=== PATIENT | female | born 1950 | race Caucasian/White ===

== ENCOUNTER → 2019-03-22 15:35 | Outpatient (BNVA) | payer MEDICARE, SELFPAY | PROVIDERS: Family Provider Family Medicine; PCP Family Medicine; Visit Provider Otolaryngology | DX: J34.2 Deviated nasal septum (principal); J34.3 Hypertrophy of nasal turbinates; J34.89 Other specified disorders of nose and nasal sinuses; R09.82 Postnasal drip | CPT/HCPCS: 99213; 99214 ==

== ENCOUNTER → 2019-04-27 13:26 | Outpatient (BNVA) | payer MEDICARE, SELFPAY | PROVIDERS: Family Provider Family Medicine; PCP Family Medicine; Visit Provider Nurse Practitioner Family | DX: E78.5 Hyperlipidemia, unspecified (principal); I10 Essential (primary) hypertension; E55.9 Vitamin D deficiency, unspecified; M25.562 Pain in left knee; G89.29 Other chronic pain; E78.2 Mixed hyperlipidemia | CPT/HCPCS: 73562; 80053; 80061; 82306; 85025 ==

== ENCOUNTER 2019-05-09 11:56 | Outpatient (CLI) | payer MEDICARE, SELFPAY ==
--- NOTE | 2019-05-09 12:43 | MR_ITS ---
WS: [id number] MRI LEFT KNEE HISTORY: left knee pain COMPARISON: LEFT knee radiograph 04/27/2019 Anterior cruciate ligament: Intact. Posterior cruciate ligament: Intact. Medial collateral ligament: Abnormal medial collateral ligament. MCL is being displaced from the knee by osteophytes and additional soft tissue. Abnormal signal involving a large portion of the MCL. The re is increased T2 signal at the level of the joint involving full-thickness MCL. Posterior lateral corner structures: Intact. Medial menisci: Abnormal anterior and posterior horns. There is a complex tear in the posterior horn and very little normal meniscal signal. Meniscus is extruded from the joint space. There is soft tiss ue in the circular manner which extends inferior to the medial tibial plateau which could be an extru ded meniscal fragment or portion of the torn MCL. Lateral meniscus: Intact. Normal signal, size and shape. Extensor mechanism: Distal quadriceps tendon and patellar tendons are intact. Fluid and soft tissue: Small joint effusion. There is increase fluid surrounding the MCL and soft tis robert edema. There is a very tiny amount of fluid in the expected location of Hilton's cyst. Osseous and articular structures: Patellofemoral compartment: Moderate narrowing patellofemoral joint. Thinning and fissuring of the ca rtilage. Loss of cartilage over the patellar eminence. Medial compartment: Severe internal derangement of the medial compartment. There is bone upon bone wi th loss of cartilage, edema and extruded meniscus and osteophytes. Largest amount of marrow edema is in the medial tibial plateau. Additional subchondral cystic changes in the medial femoral condyle. Lateral compartment: Mild narrowing of the lateral compartment with fissuring of the cartilage. No fu ll-thickness defect or marrow signal abnormality. MR/MR knee LT wo con* [id number] IMPRESSION: 1. Severe internal derangement medial compartment. Loss of cartilage with trista ow edema, extruded meniscus, complex tear posterior horn medial meniscus, osteo phytes and partially torn MCL. Suspect extruded meniscus has extended inferior to the joint line. 2. Focal cartilage loss at the patellar eminence. 3. Mild internal derangement lateral compartment.
== END 2019-05-09 11:57 | disposition home or self-care (01) ==
PROVIDERS: Family Provider Family Medicine; PCP Family Medicine; Visit Provider Nurse Practitioner Family
DX: M23.92 Unspecified internal derangement of left knee (principal); M25.562 Pain in left knee; G89.29 Other chronic pain
CPT/HCPCS: 73721

== ENCOUNTER → 2020-01-09 10:35 | Outpatient (BNVA) | payer MEDICARE, SELFPAY | PROVIDERS: Family Provider Family Medicine; PCP Family Medicine; Visit Provider Nurse Practitioner Family | DX: I10 Essential (primary) hypertension (principal); E78.2 Mixed hyperlipidemia; Z79.899 Other long term (current) drug therapy | CPT/HCPCS: 80053; 80061; 84443; 85025 ==

== ENCOUNTER → 2020-07-09 09:18 | Outpatient (BNVA) | payer MEDICARE, SELFPAY | PROVIDERS: Family Provider Family Medicine; PCP Family Medicine; Visit Provider Nurse Practitioner Family | DX: I10 Essential (primary) hypertension (principal); M25.50 Pain in unspecified joint; E55.9 Vitamin D deficiency, unspecified; E78.2 Mixed hyperlipidemia; L21.0 Seborrhea capitis | CPT/HCPCS: 80053; 80061; 82306; 82607; 83735; 84443; 84550; 84560; 85025; 85651; 86038; 86140; 86431 ==

== ENCOUNTER → 2021-01-07 11:35 | Outpatient (BNVA) | payer MEDICARE, SELFPAY | PROVIDERS: Family Provider Family Medicine; PCP Family Medicine; Visit Provider Nurse Practitioner Family | DX: I10 Essential (primary) hypertension (principal); E55.9 Vitamin D deficiency, unspecified | CPT/HCPCS: 80053; 80061; 82306; 82607; 83735; 84443; 85025 ==

== ENCOUNTER → 2021-01-10 09:02 | Outpatient (BNVA) | payer MEDICARE, SELFPAY | PROVIDERS: Family Provider Family Medicine; PCP Family Medicine; Visit Provider Nurse Practitioner Family | DX: I10 Essential (primary) hypertension (principal) | CPT/HCPCS: 85025 ==

== ENCOUNTER → 2021-07-01 08:44 | Outpatient (BNVA) | payer MEDICARE, SELFPAY | PROVIDERS: Family Provider Family Medicine; PCP Family Medicine; Visit Provider Nurse Practitioner Family | DX: I10 Essential (primary) hypertension (principal); E53.8 Deficiency of other specified B group vitamins; E55.9 Vitamin D deficiency, unspecified | CPT/HCPCS: 80053; 80061; 82306; 82607; 83735; 84443; 85025 ==

== ENCOUNTER → 2022-01-13 09:30 | Outpatient (BNVA) | payer MEDICARE, SELFPAY | PROVIDERS: Family Provider Family Medicine; PCP Family Medicine; Visit Provider Nurse Practitioner Family | DX: I10 Essential (primary) hypertension (principal); M54.50 Low back pain, unspecified; G89.29 Other chronic pain; E78.2 Mixed hyperlipidemia; E55.9 Vitamin D deficiency, unspecified; E53.8 Deficiency of other specified B group vitamins; M25.511 Pain in right shoulder | CPT/HCPCS: 73030; 80053; 80061; 82306; 82607; 83735; 84443; 85025 ==

== ENCOUNTER → 2022-07-07 11:15 | Outpatient (BNVA) | payer MEDICARE, SELFPAY | PROVIDERS: Family Provider Family Medicine; PCP Family Medicine; Visit Provider Nurse Practitioner Family | DX: I10 Essential (primary) hypertension (principal); E78.2 Mixed hyperlipidemia; E55.9 Vitamin D deficiency, unspecified; E53.8 Deficiency of other specified B group vitamins; M54.50 Low back pain, unspecified; G89.29 Other chronic pain | CPT/HCPCS: 80053; 80061; 82306; 82607; 84443; 85025 ==

== ENCOUNTER → 2023-01-12 10:20 | Outpatient (BNVA) | payer MEDICARE, SELFPAY | PROVIDERS: Family Provider Family Medicine; PCP Family Medicine; Visit Provider Nurse Practitioner Family | DX: E53.8 Deficiency of other specified B group vitamins (principal); I10 Essential (primary) hypertension; E55.9 Vitamin D deficiency, unspecified; M54.2 Cervicalgia; G89.29 Other chronic pain; M54.50 Low back pain, unspecified; E78.2 Mixed hyperlipidemia; J32.9 Chronic sinusitis, unspecified; I83.93 Asymptomatic varicose veins of bilateral lower extremities | CPT/HCPCS: 80053; 80061; 82306; 82607; 83735; 84443; 85025 ==

== ENCOUNTER → 2023-07-06 08:44 | Outpatient (BNVA) | payer MEDICARE, SELFPAY | PROVIDERS: Family Provider Family Medicine; PCP Family Medicine; Visit Provider Nurse Practitioner Family | DX: R05.9 Cough, unspecified (principal); E78.2 Mixed hyperlipidemia; G89.29 Other chronic pain; I10 Essential (primary) hypertension; E55.9 Vitamin D deficiency, unspecified; E53.8 Deficiency of other specified B group vitamins; M54.40 Lumbago with sciatica, unspecified side; Z78.9 Other specified health status; J01.00 Acute maxillary sinusitis, unspecified; B37.2 Candidiasis of skin and nail | CPT/HCPCS: 80053; 80061; 82306; 82607; 84443; 85025; 87400; 87426 ==

== ENCOUNTER → 2023-12-18 11:34 | Outpatient (BNVA) | payer MEDICARE, SELFPAY | PROVIDERS: Family Provider Family Medicine; PCP Family Medicine; Visit Provider Nurse Practitioner Family | DX: I10 Essential (primary) hypertension (principal); E55.9 Vitamin D deficiency, unspecified; R73.9 Hyperglycemia, unspecified | CPT/HCPCS: 80053; 80061; 82306; 82607; 83036; 84443; 85025 ==

== ENCOUNTER → 2024-02-21 17:04 | Outpatient (BNVA) | payer MEDICARE, SELFPAY | PROVIDERS: Family Provider Family Medicine; PCP Family Medicine; Visit Provider Emergency Medicine | DX: N30.01 Acute cystitis with hematuria (principal); R39.9 Unspecified symptoms and signs involving the genitourinary system | CPT/HCPCS: 81000 ==

== ENCOUNTER → 2024-04-04 10:41 | Outpatient (BNVA) | payer MEDICARE, SELFPAY | PROVIDERS: Family Provider Family Medicine; PCP Family Medicine; Visit Provider Nurse Practitioner Family | DX: I10 Essential (primary) hypertension (principal); R73.9 Hyperglycemia, unspecified; E55.9 Vitamin D deficiency, unspecified; M79.671 Pain in right foot | CPT/HCPCS: 73630; 80053; 80061; 82306; 82607; 83036; 83735; 84443; 85025 ==

== ENCOUNTER → 2024-07-11 09:22 | Outpatient (BNVA) | payer MEDICARE, SELFPAY | PROVIDERS: PCP Nurse Practitioner Family; Visit Provider Nurse Practitioner Family | DX: I10 Essential (primary) hypertension (principal); G62.9 Polyneuropathy, unspecified; R11.0 Nausea; R73.03 Prediabetes; M25.50 Pain in unspecified joint | CPT/HCPCS: 80053; 80061; 82306; 82607; 82728; 83036; 83735; 84443; 85025; 86003; 86008 ==

== ENCOUNTER 2024-07-20 08:04 | Outpatient (CLI) | payer MEDICARE, SELFPAY ==
--- NOTE | 2024-07-20 08:18 | US_ITS ---
WS: [id number] ABDOMINAL ULTRASOUND LIMITED REASON FOR VISIT: R11.0 - Nausea TECHNIQUE: Grayscale and Doppler ultrasound examination of the abdomen. FINDINGS: Pancreas: Limited visualization with no mass identified. No ductal dilatation identified. Abdominal aorta and IVC: Normal Liver: The liver does not appear enlarged. Relatively normal echogenic texture with no focal lesions. Normal portal venous blood flow. Gallbladder: No gallbladder wall thickening or gallbladder calculi. Right kidney: Right kidney measures 10.1 cm x 4.6 cm x 4.9 cm. Right kidney cortex measures 1.3 cm. No mass, calculus or hydronephrosis. No ascites. US/US gall bladder [id number] IMPRESSION: No significant abnormality.
--- NOTE | 2024-07-20 08:45 | CT_ITS ---
WS: [id number] CT chest wo con [id number] HISTORY: R91.1 - Solitary pulmonary nodule TECHNIQUE: Axial imaging performed through the thorax. Coronal and sagittal reformats are submitted. All CT scans at [facility] use at least one of these dose optimization techniques: automated exposure control; mA and/or kV adjustment per patient size (includes targeted exams where dose is matched to clinical indication); or iterative reconstruction. CONTRAST: Omnipaque 350; 100 mL IV. DLP: 461.85 mGy.cm COMPARISON: 07/23/2018 Lungs and central airway: Well-aerated lungs. 6 mm ovoid RIGHT perifissural nodule is stable. Benign granuloma, subpleural LEFT lower lobe. There are a few additional very tiny micronodules. 4 mm noncalcified nodule LEFT lower lobe is unchanged. Pleura: Normal. No pleural effusion. Heart and pericardium: Normal size heart with no pericardial effusion. Mediastinum and deven: No mediastinum or hilar adenopathy. Vessels: Dilated ascending thoracic aorta with a maximum diameter 4.1 cm. Pulmonary artery is also dilated to 3.4 cm. Chest wall and lower neck: No soft tissue masses. Upper abdomen: Small hiatal hernia. LEFT adrenal gland hyperplasia with a small adenoma measuring 1.6 cm. Osseous structures: Mild increase in thoracic kyphosis. Small endplate osteophytes throughout the thoracic spine. Schmorl's node T12. CT/CT chest wo con [id number] IMPRESSION: 1. Long-term stability RIGHT perifissural nodule and LEFT lower lobe subcentim eter nodule. 2. No pneumonia. 3. LEFT adrenal gland hyperplasia with a small adenoma. 4. Mild aneurysmal dilatation ascending thoracic aorta, 4.1 cm. Prior measurem ent 3.7 cm. 5. Mild pulmonary hypertension.
--- NOTE | 2024-07-20 09:15 | CT_ITS ---
WS: [id number] CT PARANASAL SINUSES HISTORY: J32.9 - Chronic sinusitis, unspecified TECHNIQUE: Contiguous 2.0 mm axial images obtained through the sinuses. Images are reconstructed in sagittal and coronal planes. All CT scans at [facility] use at least one of these dose optimization techniques: automated exposure control; mA and/or kV adjustment per patient size (includes targeted exams where dose is matched to clinical indication); or iterative reconstruction. DLP: 333.38 mGy.cm COMPARISON: 12/28/2018 Frontal sinuses: Normal. Sphenoid sinus: Normal. Ethmoid sinuses: Normal. Maxillary sinus: No air-fluid levels. Small mucous retention cyst in the floor the LEFT maxillary sinus unchanged since 2019. No air-fluid levels. There are few small septa throughout both maxillary sinuses. Ostiomeatal unit: Widely patent. Mild deviation of the nasal septum to the LEFT. 5 mm bony spur projecting to the LEFT. CT/CT sinus wo con* [id number] IMPRESSION: 1. Mild mucoperiosteal thickening in the maxillary sinuses. No air-fluid level s. 2. Small LEFT maxillary sinus mucus retention cyst. 3. Mild deviation of the nasal septum to the LEFT with a bony spur.
== END 2024-07-20 08:05 | disposition home or self-care (01) ==
LOC: RAD 08:05
PROVIDERS: PCP Nurse Practitioner Family; Visit Provider Nurse Practitioner Family
DX: J32.0 Chronic maxillary sinusitis (principal); R11.0 Nausea; R91.8 Other nonspecific abnormal finding of lung field; J34.89 Other specified disorders of nose and nasal sinuses; M27.40 Unspecified cyst of jaw; J34.2 Deviated nasal septum; E27.8 Other specified disorders of adrenal gland; D35.02 Benign neoplasm of left adrenal gland; I77.810 Thoracic aortic ectasia; I27.20 Pulmonary hypertension, unspecified; J84.10 Pulmonary fibrosis, unspecified; I28.1 Aneurysm of pulmonary artery; K44.9 Diaphragmatic hernia without obstruction or gangrene; M40.294 Other kyphosis, thoracic region; M25.78 Osteophyte, vertebrae; M51.44 Schmorl's nodes, thoracic region
CPT/HCPCS: 70486; 71250; 76705

== ENCOUNTER → 2024-08-11 08:42 | Outpatient (BNVA) | payer MEDICARE, SELFPAY | PROVIDERS: PCP Nurse Practitioner Family; Visit Provider Nurse Practitioner Family | DX: L30.9 Dermatitis, unspecified (principal); D36.12 Benign neoplasm of peripheral nerves and autonomic nervous system, upper limb, including shoulder; L21.8 Other seborrheic dermatitis; L82.1 Other seborrheic keratosis; D22.5 Melanocytic nevi of trunk; L82.0 Inflamed seborrheic keratosis; Z78.9 Other specified health status; R20.8 Other disturbances of skin sensation; L53.8 Other specified erythematous conditions; L29.89 Other pruritus | CPT/HCPCS: 17110; 99204 ==

== ENCOUNTER → 2024-08-18 09:39 | Outpatient (BNVA) | payer MEDICARE, SELFPAY | PROVIDERS: PCP Nurse Practitioner Family; Visit Provider Nurse Practitioner Family | DX: D50.9 Iron deficiency anemia, unspecified (principal) | CPT/HCPCS: 82728; 83550; 85025 ==

== ENCOUNTER 2024-08-22 12:58 | Outpatient (CLI) | payer MEDICARE, SELFPAY ==
--- NOTE | 2024-08-22 13:01 | XRR_ITS ---
PROCEDURE INFORMATION: Exam: XR Cervical Spine Exam date and time: 08/22/2024 1:20 PM Age: 73 years old Clinical indication: Pain; Cervicalgia; Prior surgery; Surgery date: 6+ months; Surgery type: Acdf; Additional info: M54.2 - cervicalgia TECHNIQUE: Imaging protocol: Radiologic exam of the cervical spine. Views: 2 or 3 views. AP Lateral Odontoid 3 views COMPARISON: CT sinus wo con* [id number] 07/20/2024 8:16 AM FINDINGS: Tubes, catheters and devices: None. Bones/joints: Multilevel vertebral body fusion, intervertebral discectomy hardware identified within C5-C7 levels. Adjacent anterior metallic hardware plate at these levels with anterior vertebral body screws at C5 and C7 levels. Normal alignment of the vertebra without dislocation or spondylolisthesis. Diffusely severely decreased bone density. Limited sensitivity to detect acute bony abnormalities. Severe degenerative changes at C7-T1 level. Severe bony degenerative changes involving the anterior cervical cranial junction. Moderate to severe generalized bony degenerative changes. Bony structures appear otherwise unremarkable. Soft tissues: Unremarkable. Lungs: Visualized aspects of the chest appear grossly unremarkable. Vasculature: Mild atherosclerotic calcification demonstrated within the aorta. Notes: If there is further concern or neurological abnormalities on clinical exam, MRI or CT of the cervical spine may be performed for complete assessment. XR/XR cervical spine 3V* [id number] IMPRESSION: 1. No acute bony abnormality identified. 2. Chronic appearing moderate to severe degenerative changes, as described above. 3. Decreased bone density. Limited sensitivity. 4. Intervertebral discectomy with vertebral body fusion, internal fixation between C5-C7 levels.
== END 2024-08-22 12:59 | disposition home or self-care (01) ==
LOC: RAD 13:00
PROVIDERS: PCP Nurse Practitioner Family; Visit Provider Nurse Practitioner Family
DX: M47.893 Other spondylosis, cervicothoracic region (principal); Z98.890 Other specified postprocedural states; M85.88 Other specified disorders of bone density and structure, other site; M89.8X8 Other specified disorders of bone, other site; I70.0 Atherosclerosis of aorta
CPT/HCPCS: 72040

== ENCOUNTER 2024-09-09 07:41 | Outpatient (CLI) | payer MEDICARE, SELFPAY ==
--- NOTE | 2024-09-09 08:00 | MR_ITS ---
WS: [email or web address] MRI CERVICAL SPINE NONCONTRAST TECHNIQUE: Sagittal T1, T2 and STIR imaging. Axial T2, gradient, and fiesta imaging. CLINICAL INFORMATION: M54.2 - Cervicalgia COMPARISON: MRI 2017 FINDINGS: Cervical fusion is new since 2017. Straightening of the normal cervical lordosis. ACDF C4-C7 with C6 corpectomy and interbody fusion graft. Alignment appears stable since CT 2019. C2-C3: Moderate LEFT facet arthropathy. Moderate LEFT bony foraminal narrowing. C3-C4: Moderate facet arthropathy worse on the LEFT. Moderate LEFT bony foraminal narrowing. Mild central canal stenosis. C4-C5: Small disc osteophyte protrusion. Slight contact of the cervical cord. Mild central canal stenosis. Moderate facet arthropathy. Mild LEFT bony foraminal narrowing. C5-C6: ACDF C5-C7. Mild to moderate LEFT bony foraminal narrowing. Moderate facet arthropathy. C6-C7: Partial corpectomy with interbody strut graft. Mild facet arthropathy. Mild to moderate LEFT proximal bony foraminal narrowing. Moderate central canal stenosis. C7-T1: Disc osteophyte complex with endplate ridging. Central and LEFT paracentral disc osteophyte protrusion. Moderate central canal stenosis with slight indentation on the cervical cord. Moderate RIGHT and mild LEFT foraminal narrowing. Shallow central protrusion at T1-2 and T2-3 moderate LEFT T1-T2 foraminal narrowing with a LEFT foraminal protrusion. Visualized brain stem structures: Normal. Prevertebral soft tissues: Normal. MR/MR cervical spin wo con* [id number] IMPRESSION: 1. Postoperative changes ACDF C5-C7 with interbody strut graft at C6 with part ial corpectomy. 2. Moderate central canal stenosis C6-7 with slight indentation of the cervica l cord. 3. Moderate central canal stenosis C7-T1 with central LEFT paracentral disc os teophyte protrusion with slight indentation on the cervical cord. 4. Mild central canal stenosis C3-C4 and C4-C5. 5. Mild to moderate bony foraminal narrowing described above. 6. LEFT foraminal protrusion at T1-2 with moderate LEFT foraminal narrowing.
== END 2024-09-09 07:42 | disposition home or self-care (01) ==
PROVIDERS: PCP Nurse Practitioner Family; Visit Provider Nurse Practitioner Family
DX: M48.02 Spinal stenosis, cervical region (principal); G89.29 Other chronic pain; Z98.1 Arthrodesis status; M48.03 Spinal stenosis, cervicothoracic region; M25.78 Osteophyte, vertebrae; M50.23 Other cervical disc displacement, cervicothoracic region; M51.24 Other intervertebral disc displacement, thoracic region; M48.04 Spinal stenosis, thoracic region; M47.892 Other spondylosis, cervical region
CPT/HCPCS: 72141

== ENCOUNTER → 2024-09-20 14:50 | Outpatient (BNVA) | payer MEDICARE, SELFPAY | PROVIDERS: PCP Nurse Practitioner Family; Visit Provider Internal Medicine | DX: I71.20 Thoracic aortic aneurysm, without rupture, unspecified (principal); I10 Essential (primary) hypertension; E78.5 Hyperlipidemia, unspecified; Z87.891 Personal history of nicotine dependence; R07.9 Chest pain, unspecified; R06.02 Shortness of breath | CPT/HCPCS: 93005; 99204 ==

== ENCOUNTER → 2024-09-22 15:26 | Outpatient (BNVA) | payer MEDICARE, SELFPAY | PROVIDERS: PCP Nurse Practitioner Family; Visit Provider Orthopaedic Surgery | DX: M54.9 Dorsalgia, unspecified (principal); M54.40 Lumbago with sciatica, unspecified side; G89.29 Other chronic pain | CPT/HCPCS: 72050; 72110; 99204 ==

== ENCOUNTER → 2024-10-03 07:44 | Outpatient (BNVA) | payer MEDICARE, SELFPAY | PROVIDERS: PCP Nurse Practitioner Family; Visit Provider Anesthesiology Pain Medicine | DX: M54.2 Cervicalgia (principal); Z87.891 Personal history of nicotine dependence | CPT/HCPCS: 99204 ==

== ENCOUNTER 2024-10-05 09:12 | Outpatient (CLI) | payer MEDICARE, SELFPAY ==
--- NOTE | 2024-10-05 09:30 | MR_ITS ---
WS: [id number] MRI LUMBAR SPINE NONCONTRAST TECHNIQUE: Sagittal T1, T2 and STIR imaging. Axial T1 and T2 imaging. CLINICAL INFORMATION: Back pain COMPARISON: MRI 2019 FINDINGS: Counting performed from the craniocervical junction. 4 lumbar type vertebral bodies labeled 1 through 4 with the first sacral segment considered S1 in keeping with the prior numbering convention from 2019. L1-L2: Mild annular bulging. Mild narrowing of the subarticular recess. Moderate facet arthropathy. Spinal canal is patent. Mild foraminal narrowing. L2-L3: Mild annular bulging. Impingement of the subarticular recess bilaterally. Moderate facet arthropathy. This is progressed compared to previous. Small bilateral foraminal protrusions with mild LEFT greater than RIGHT foraminal narrowing. L3-L4: Central disc protrusion. Small annular fissure. Mild central canal stenosis. Impingement subarticular recess bilaterally and traversing L4 nerve roots. This is progressed compared to previous. Mild LEFT foraminal narrowing. L4-S1: Mild annular bulging. Small LEFT subarticular and proximal foraminal protrusion slightly impinges the traversing LEFT S1 and exiting LEFT L4 nerve roots. This is progressed compared to previous. Moderate facet arthropathy. RIGHT foramen is patent. MR/MR lumbar spine wo con* [id number] IMPRESSION: 1. Counting performed from the craniocervical junction. 4 lumbar type verteb ral bodies labeled 1 through 4 with the first sacral segment considered S1 in k eeping with the prior numbering convention from 2019. 2. Progressed mild central canal stenosis L3-4 with a central disc protrusion and annular fissure. Impingement on the traversing L4 nerve roots bilaterally. 3. Progressed small LEFT subarticular protrusion L5-S1 slightly impinges the L EFT S1 and exiting LEFT L4 nerve roots. 4. Mild central canal stenosis L2-3 progressed with impingement on traversing L3 nerve roots 5. New LEFT foraminal protrusion L2-3 impinges the exiting LEFT L2 nerve root 6. Mild LEFT L3-4 foraminal narrowing.
== END 2024-10-05 09:13 | disposition home or self-care (01) ==
LOC: RAD 09:13
PROVIDERS: PCP Nurse Practitioner Family; Visit Provider Orthopaedic Surgery
DX: M48.061 Spinal stenosis, lumbar region without neurogenic claudication (principal); M51.26 Other intervertebral disc displacement, lumbar region
CPT/HCPCS: 72148

== ENCOUNTER → 2024-10-11 14:17 | Outpatient (BNVA) | payer MEDICARE, SELFPAY | PROVIDERS: PCP Nurse Practitioner Family; Visit Provider Orthopaedic Surgery | DX: M48.062 Spinal stenosis, lumbar region with neurogenic claudication (principal); Z09 Encounter for follow-up examination after completed treatment for conditions other than malignant neoplasm | CPT/HCPCS: 99213 ==

== ENCOUNTER → 2024-10-12 12:50 | Outpatient (BNVA) | payer MEDICARE, SELFPAY | PROVIDERS: PCP Nurse Practitioner Family; Visit Provider Podiatrist Foot & Ankle Surgery | DX: M79.671 Pain in right foot (principal); S90.31XA Contusion of right foot, initial encounter; W20.8XXA Other cause of strike by thrown, projected or falling object, initial encounter | CPT/HCPCS: 73630; 99203 ==

== ENCOUNTER 2024-10-27 08:57 | Outpatient (CLI) | payer MEDICARE, SELFPAY ==
--- NOTE | 2024-10-27 09:15 | USCV_ITS ---
Loli Guardado Age: 74 Gender: F : 1950 Exam Date: 10/27/2024 09:15 Ordering Phys: Rashawn Frances M.D ([email or web address]) Technologist: ARACELI [place] [facility] [place]: SoB BP: 119 / 85 HR: 72 Rhythm: Sinus Technical Quality: Adequate MEASUREMENTS (Male / Female) Normal Values 2D ECHO LV Diastolic Diameter PLAX 4.8 cm 4.2 - 5.9 / 3.9 - 5.3 cm IVS Diastolic Thickness 1.1 cm 0.6 - 1.0 / 0.6 - 0.9 cm IVS Systolic Thickness 2.2 cm LVPW Diastolic Thickness 1.4 cm 0.6 - 1.0 / 0.6 - 0.9 cm LVPW Systolic Thickness 1.8 cm LVOT Diameter 2.0 cm LV Ejection Fraction 2D Teich 58.0 % LV Ejection Fraction MOD 4C 53.3 % LV Ejection Fraction MOD 2C 62.6 % LV Ejection Fraction 2C AL 66.7 % LA Diameter 3.3 cm RA Systolic Volume 4C AL 49.3 ml RA Systolic Volume 4C MOD 45.0 ml LA Sys Volume AL 27.2 cm cubed LA Sys Volume Index AL 12.7 cm cubed/m squared Aorta at Sinotubular Diameter 3.2 cm M-MODE LA Ao Ratio MM 1.2 AV Cusp Separation MM 1.7 cm DOPPLER AV Peak Velocity 146.0 cm/s LVOT Peak Velocity 87.0 cm/s AV Area Cont Eq vti 1.7 cm squared AV Area Cont Eq pk 1.8 cm squared MV Peak Velocity 88.0 cm/s MV Area PHT 3.1 cm squared Mitral E to A Ratio 0.9 TV Peak E Velocity 75.0 cm/s PV Peak Velocity 88.0 cm/s FINDINGS Left Ventricle Normal left ventricular size, systolic function and wall thickness, with no regional wall motion abnormalities. Normal left ventricular size and systolic function, EF 55-60%. Grade 1 diastolic dysfunction. Right Ventricle Normal right ventricular size and systolic function. Right Atrium Normal right atrial size. Left Atrium Normal left atrial size. Mitral Valve Structurally normal mitral valve. Mild mitral valve regurgitation. Aortic Valve Structurally normal aortic valve. No aortic valve stenosis. Tricuspid Valve Insufficient TR jet to calculate RVSP Pulmonic Valve Not well visualized Pericardium Normal Aorta Normal in size IVC Not well visualized CONCLUSIONS LV systolic function is normal with EF of 55-60% Grade 1 diastolic dysfunction Mild mitral regurgitation Rashawn Frances MD (Electronically Signed) Final Date: 29 October 2024 10:20 S
== END 2024-10-27 08:58 | disposition home or self-care (01) ==
LOC: RAD 08:59
PROVIDERS: PCP Nurse Practitioner Family; Visit Provider Internal Medicine
DX: R06.02 Shortness of breath (principal); I51.89 Other ill-defined heart diseases; I34.0 Nonrheumatic mitral (valve) insufficiency
CPT/HCPCS: 93306

== ENCOUNTER → 2024-11-10 13:24 | Outpatient (BNVA) | payer MEDICARE, SELFPAY | PROVIDERS: PCP Nurse Practitioner Family; Visit Provider Orthopaedic Surgery | DX: M48.062 Spinal stenosis, lumbar region with neurogenic claudication (principal) | CPT/HCPCS: 36415; 80053; 81001; 85025; 99214 ==

== ENCOUNTER → 2024-11-16 09:19 | Outpatient (BNVA) | payer MEDICARE, SELFPAY | PROVIDERS: PCP Nurse Practitioner Family; Visit Provider Nurse Practitioner Family | DX: E78.2 Mixed hyperlipidemia (principal); I10 Essential (primary) hypertension; E55.9 Vitamin D deficiency, unspecified | CPT/HCPCS: 80053; 80061; 82306; 82607; 83735; 84443 ==

== ENCOUNTER 2024-11-25 05:49 | Day surgery (SDC) | payer MEDICARE, SELFPAY ==
[2024-11-25] VITALS (10 sets, daily range): BP systolic 134–159; BP diastolic 72–93; PULSE 58–84; RESP 16–22; TEMP 36.1–36.6; O2SAT 95–100; BMI 31.4
--- NOTE | 2024-11-25 06:42 | W.PM.OPSUD ---
Surgery/Procedure H&P Update DATE OF PROCEDURE: November 25, 2024 DATE H&P PERFORMED: 11/10/24 H&P UPDATE INFORMATION: I have reviewed H&P completed within last 30 days, I have examined patient prior to procedure and No changes to prior documentation PREOP DIAGNOSIS: Lumbar stenosis neurogenic claudication PLANNED PROCEDURE: Operation Date: 11/25/24 07:00 Proposed Procedures p Spine Decompression Lumbar Decompression(Not Applicable) - Juan Manuel Santiago DO
--- NOTE | 2024-11-25 06:55 | ANES.PREANE2 ---
Pre-Anesthetic Assessment Height/Weight: Height 1.68 m Weight 88.451 kg Temp Pulse Resp BP Pulse Ox O2 Del Method 98 F 58 L 16 144/80 99 Room Air 11/25/24 06:05 11/25/24 06:05 11/25/24 06:05 11/25/24 06:05 11/25/24 06:05 11/25/24 06:05 Preop Diagnosis: Lumbar stenosis neurogenic claudication Operation Date: 11/25/24 07:00 Proposed Procedures p Spine Decompression Lumbar Decompression(Not Applicable) - Juan Manuel Santiago, DO Familial anesthetic complications: None Was Beta Dillon taken within 24 hours: N/A Was Clonidine taken within 24 hours: N/A Last intake: Intake Last Liquid Date 11/24/24 Last Liquid Time 23:00 Last Solid Date 11/24/24 Last Solid Time 18:00 Social No alcohol and No tobacco Exam alert, oriented x 3, clear to auscultation bilaterally and regular rate & rhythm Airway Mallampati: Class I Dentition: full Pulmonary pulm htn CV/HEM Hypertension mild TAA - surveillance mild MVR Metabolic Hyperlipidemia Anesthetic Plan ASA status: 3 Risk of > 500 ml blood loss (7ml/kg in children): No Medications/Allergies Home Medications ?Medication ?Instructions ?Recorded ?Confirmed ?Last Taken ?Type psyllium husk 3.4 gram/5.4 gram 1 tsp PO BID 03/14/19 11/25/24 1 Day Ago History oral powder (Metamucil) ~11/24/24 turmeric 400 mg capsule 400 mg PO DAILY 03/14/19 11/25/24 11/17/24 History vitamin B complex (B 1 tab PO QAM 03/14/19 11/25/24 Unknown History Complex-Vitamin B12 tablet) cholecalciferol (vitamin D3) 50 2,000 unit PO DAILY 01/09/20 11/25/24 Unknown History mcg (2,000 unit) capsule loratadine 10 mg tablet (Claritin) 10 mg PO DAILY PRN allergy 01/12/23 11/25/24 Unknown Rx symptoms #90 tabs fluticasone propionate 50 2 spray intranasal DAILY #16 grams 04/04/24 11/25/24 Unknown Rx mcg/actuation nasal spray,suspension (Flonase Allergy Relief) elisa root extract 50 mg tablet 50 mg PO DAILY 08/18/24 11/25/2411/17/25 History acetaminophen 650 mg 650 mg PO Q8H 09/20/24 11/25/24 1 Day Ago History tablet,extended release (Tylenol 8 ~11/24/24 Hour) diclofenac sodium 75 mg 75 mg PO BID PRN Pain 09/20/24 11/25/24 11/17/24 History tablet,delayed release diclofenac sodium 1 % topical gel 2 g topical TID 30 days #100 grams 10/12/24 11/25/24 11/21/24 Rx (Voltaren Arthritis Pain) amlodipine 5 mg tablet 5 mg PO QPM 11/24/24 11/25/24 1 Day Ago History ~11/24/24 atorvastatin 20 mg tablet 20 mg PO QPM 11/24/24 11/25/24 1 Day Ago History ~11/24/24 docusate sodium 100 mg capsule 100 mg PO TID 11/24/24 11/25/24 1 Day Ago History ~11/24/24 lisinopril 20 1 tab PO DAILY 11/24/24 11/25/24 11/24/24 History mg-hydrochlorothiazide 12.5 mg tablet Allergies Allergy/AdvReac Type Severity Reaction Status Date / Time Alpha-Gal Allergy ADR-Nausea Verified 11/25/24 06:12 ([id number]-Wrsnf-6,3-Gala Current Medications Generic Name Dose Route Start Last Admin Trade Name Freq PRN Reason Stop Dose Admin Sodium Chloride 1,000 mls @ 30 mls/hr 11/25/24 06:15 11/25/24 06:30 Sodium Chloride 0.9% IV 11/26/24 06:14 30 mls/hr .Q24H AMANDA Administration PFSH Anesthesia Medical History Anemia Chronic sinusitis Enrolled in chronic care management Hypertension Surgical History History of spinal surgery History of knee surgery History of appendectomy Social History Smoking and tobacco/nicotine status: never used tobacco/nicotine Quit status (tobacco/nicotine): has quit using Year quit tobacco: 1973 Former quit date comment: smoked 3PPD x 10 yrs Second hand smoke exposure: No Alcohol intake: never Substance/Drug Use: never Caregiver/support person: Yes (sig other) Lives independently: Yes Household members: none Marital status: / service: No Current occupational status: retired Current gender identity: Female Agree to transfusion: Yes Data Anesthesia Cardiac Studies: Echocardiogram 10/27/24
[2024-11-25] MEDS: ceFAZolin 2,000 mg SDV 2000 MG IVP (06:56)
[2024-11-25] MEDS: lidocaine-epi 1% 20 mL INJ INJECTION (07:35)
--- NOTE | 2024-11-25 08:12 | XR_ITS ---
WS: [id number] C-ARM RADIOGRAPHS LUMBAR SPINE; 2 IMAGES HISTORY: OR PICS COMPARISON: None available. Intraoperative imaging during lumbar fusion procedure. XR/XR lumbar spine 2-3V* [id number] IMPRESSION: Intraoperative imaging during lumbar fusion.
--- NOTE | 2024-11-25 08:20 | P.OP_ITS ---
Operative Report Date of procedure: November 25, 2024 Pre-op diagnosis: Lumbar stenosis neurogenic claudication Post-op diagnosis: same Procedure done: 1. L4/5 laminectomy with partial facetectomy 2. L5/S1 laminectomy and partial facetectomy Surgeon: Juan Manuel Santiago DO Estimated blood loss (mL): 5 Procedure: 1. L4/5 laminectomy with partial facetectomy 2. L5/S1 laminectomy and partial facetectomy Patient is brought to the operative suite. After undergoing anesthesia they are placed in the prone position. All areas of impingement are well padded. Patient is then prepped and draped in the normal sterile fashion. A skin incision is made over the L4/L5 level. This is confirmed under c-arm guidance. A series of dilators are passed and the tubular retractor is docked on the L4 lamina. A bovie is used to clear the soft tissue off the lamina and the L4/L5 facet joint. A high speed alex is then used to perform the laminectomy and take down the medial aspect of the L 4/5 facet joint. A kerrison rongeure was then used to take down the remaining lamina and smooth the edge of the laminectomy up to the point where the ligamentum flavum attaches. Attention was then brought to the medial aspect of the facet joint. The remaining medial aspect of the superior and inferior aspect of the facet joint were taken down with the kerrison from the pedicle of L4 to L 5. The facet joint had significant hypertrophy. Attention was then brought to the Ligamentum Flavum. The ligament was taken down from the lamina of L4 to L5 and out medially to the remaining facet joint. The ligament was thick. The dura was then exposed. The dura was in good repair. The L4 nerve was then traced with a curette out the L4/5 foramen and found to be adequately decompressed. The L5 nerve was traced with a curette around the L5 pedicle. The lateral recess was opened with a kerrison helping to further decompress the L5 nerve. Wound is then irrigated copiously with saline and surgiflo is used to stop any bleeding. The tubular retractor is removed A skin incision is made over the L5/S1 level. This is confirmed under c-arm guidance. A series of dilators are passed and the tubular retractor is docked on the L5 lamina. A bovie is used to clear the soft tissue off the lamina and the L 5/S1 facet joint. A high speed alex is then used to perform the laminectomy and take down the medial aspect of the L 5/S1 facet joint. A kerrison rongeure was then used to take down the remaining lamina and smooth the edge of the laminectomy up to the point where the ligamentum flavum attaches. Attention was then brought to the medial aspect of the facet joint. The remaining medial aspect of the superior and inferior aspect of the facet joint were taken down with the kerrison from the pedicle of L5 to S1. The facet joint had significant hypertrophy. Attention was then brought to the Ligamentum Flavum. The ligament was taken down from the lamina of L5 to S1 and out medially to the remaining facet joint. The ligament was thick. The dura was then exposed. The dura was in good repair . The L5 nerve was then traced with a curette out the L5/S1 foramen and found to be adequately decompressed. The S1 nerve was traced with a curette around the S1 pedicle. The lateral recess was opened with a kerrison helping to further decompress the S1 nerve. There was a small dural tear which occurred at the distal end of the facet as the nerve wrapped around the pedicle. Put a piece of DuraGen and DuraSeal into sealed up there was no leakage. Wound is then irrigated copiously with saline and surgiflo is used to stop any bleeding. The tubular retractor is removed and the wound is closed with vicryl and monocryl suture. Steri strips were applied. A sterile dressing is then placed. Patient was then placed in the supine position and transferred to the PACU in stable condition.
[2024-11-25] MEDS: HYDROcodone-acetaminophen 5-325 mg Tablet 1 TAB PO (08:53)
--- NOTE | 2024-11-25 08:57 | PC.NURSE ---
patient rates pain 4 constant, 8 when moving. wayne ordered from dc prescription order. medication given to pt.
--- NOTE | 2024-11-25 09:30 | ANE.PACU2 ---
Inpatient post-anesthesia follow up: Airway intact: Yes Vital signs: Temperature 97.4 F Pulse Rate 59 Respiratory Rate 16 Blood Pressure 159/93 Pulse Oximetry 98 Oxygen Delivery Me thod Room Air Oxygen Flow Rate 10 Fraction of Inspir ed Oxygen Hydration adequate: Yes Nausea and vomiting: No Pain level: 1 Mental status: Baseline
== END 2024-11-25 09:30 | disposition home or self-care (01) ==
PROVIDERS: PCP Nurse Practitioner Family; Visit Provider Orthopaedic Surgery
PROC: (CPT 63047; principal; 2024-11-25 07:00)
DX: M48.062 Spinal stenosis, lumbar region with neurogenic claudication (principal); I10 Essential (primary) hypertension; E78.5 Hyperlipidemia, unspecified; Z91.014 Allergy to mammalian meats; D64.9 Anemia, unspecified; Z87.891 Personal history of nicotine dependence
CPT/HCPCS: 63047; 63048; 72100; 76000; C9358; J0131; J0690; J1100; J2405; J3010; J3490; J7030; J9999

== ENCOUNTER → 2024-12-13 15:33 | Outpatient (BNVA) | payer MEDICARE, SELFPAY | PROVIDERS: PCP Nurse Practitioner Family; Visit Provider Orthopaedic Surgery | DX: Z98.890 Other specified postprocedural states (principal) | CPT/HCPCS: 99024 ==

== ENCOUNTER → 2025-01-10 08:01 | Outpatient (BNVA) | payer MEDICARE, SELFPAY | PROVIDERS: PCP Nurse Practitioner Family; Visit Provider Orthopaedic Surgery | DX: Z98.890 Other specified postprocedural states (principal) | CPT/HCPCS: 99024 ==

== ENCOUNTER → 2025-02-16 08:26 | Outpatient (BNVA) | payer MEDICARE, SELFPAY | PROVIDERS: PCP Nurse Practitioner Family; Visit Provider Orthopaedic Surgery | DX: Z98.890 Other specified postprocedural states (principal) | CPT/HCPCS: 72072; 99213 ==